=== PATIENT | female | born 1965 | race American Indian/Alaskan Native ===

== ENCOUNTER 2016-12-05 15:58 | Emergency (ER) | payer BC, MEDICARE | END 2016-12-05 16:44 | disposition left against medical advice (07) | LOC: DL.ED 15:58 | DX: Z53.21 Procedure and treatment not carried out due to patient leaving prior to being seen by health care provider (principal) ==

== ENCOUNTER 2017-05-31 10:23 | Emergency (ER) | payer BC, MEDICARE ==
--- NOTE | 2017-05-31 10:41 | EDM.PDOC ---
ED HPI GENERAL MEDICAL PROBLEM - General Chief Complaint: Headache Stated Complaint: CAME FROM ACLR Time Seen by Provider: 05/31/17 10:35 Source of Information: Reports: Patient, Old Records, Provider (Dr. Zepeda), RN , RN Notes Reviewed History Limitations: Reports: No Limitations - History of Present Illness INITIAL COMMENTS - FREE TEXT/NARRATIVE: Sent from clinic by Dr. Zepeda with c/o of fairly sudden onset of a generalized headache one week ago on 05/24/17. Pt was seen in clinic and had a CT Head on 05/29/17 which showed a tiny lacunar infarct in the right frontal hemisphere of unknown chronicity, but was otherwise with no acute findings. Pt discontinued her Hydrocodone that she takes for chronic back pain because she didn't know if she should keep taking it while she had this headache. Pt seen by Dr. Zepeda in clinic today because the headache has continued and worsened. Pt reported subjective fever and chills and random intermittent generalized body aches, but Dr. Zepeda states pt does not have influenza. Pt also reported neck pain, so Dr. Zepeda sent her to the ER for further evaluation. Pt reports to me that when the headache began she and her sister were headed out of town to a for a family member, and it was stressful. They stopped and ate at [facility], and she normally doesn't eat that kind of food. Shortly after eating she became nauseated and vomited and around that time is when the headache started. Since 05/24/17 she reports recurrent nausea, and has vomited a few times. She does not feel the N/V are necessarily related or associated to the headache. She reports a flare up of her chronic low back pain and had the new onset of left sided sciatica radiating to her knee. When she lays down her headache is worse if she lifts the left leg, because it causes tightness in the low back. Pt c/o muscle tension and spasms in the back of the head, neck, and upper back. Denies injury. Onset: Sudden Onset Date: 05/24/17 Duration: Constant, Getting Worse Location: Reports: Head (pain moves around to differnt areas of the head) Quality: Reports: Ache Severity: Severe Improves with: Reports: None Worsens with: Reports: None Bilateral Head Pain Score (Numeric/FACES): 9 - Related Data Allergies Allergy/AdvReac Type Severity Reaction Status Date / Time iopamidol [From Isovue-M] Allergy Severe Difficulty Verified 09/26/14 15:49 Breathing gabapentin Allergy Hallucinati Verified 09/26/14 15:49 ons Penicillins Allergy Cannot Verified 09/26/14 15:49 Remember Home Meds: Home Meds Hydrocodone/Acetaminophen [Hydrocodon-Acetaminophen 5-325] 1 each PO Q6HR PRN [History] Aspirin [Halfprin] 81 mg PO DAILY 05/31/17 [History] Fish Oil/[place]-3 Fatty Acids [Fish Oil 1,000 MG] 1 tab PO DAILY 05/31/17 [ History] atorvaSTATin [Lipitor] 10 mg PO DAILY 05/31/17 [History] Past Medical History Musculoskeletal History: Reports: Back Pain, Chronic Neurological History: Reports: CVA (Lacunar infarct) Endocrine/Metabolic History: Reports: Obesity/BMI 30+ - Past Surgical History Neurological Surgical History: Reports: Lumbar Spine Musculoskeletal Surgical History: Reports: Arthroscopic Knee, Other (See Below) Social & Family History - Family History Family Medical History: Noncontributory - Tobacco Use Smoking Status *Q: Never Smoker Second Hand Smoke Exposure: No - Caffeine Use Caffeine Use: Reports: Coffee, Tea - Alcohol Use Days Per Week of Alcohol Use: 0 - Recreational Drug Use Recreational Drug Use: No - Living Situation & Occupation Living situation: Reports: , with Family Occupation: Employed ED ROS GENERAL - Review of Systems Review Of Systems: ROS reveals no pertinent complaints other than HPI. - Physical Exam Exam: See Below Exam Limited By: No Limitations General Appearance: Alert, WD/WN, No Apparent Distress, Obese Eye Exam: Bilateral Eye: EOMI, Normal Fundi, Normal Inspection (No photophobia) , PERRL Ears: Normal External Exam, Normal Canal, Hearing Grossly Normal, Normal TMs Nose: No Blood, Other (moderately inflammed nasal mucosa with no drainage, no tenderness overlying frontal or maxillary sinuses) Throat/Mouth: Normal Inspection, Normal Lips, Normal Teeth, Normal Gums, Normal Oropharynx, Normal Voice, No Airway Compromise Head Exam: Atraumatic, Normocephalic, Scalp Tenderness (soft tissue tenderness generalized at the occipital region). No: Facial Tenderness, Sinus Tenderness Neck: Other (no nuchal rigidity, full ROM with report of muscle spasm/ tenderness with B/L rotation). No: Lymphadenopathy (L), Lymphadenopathy (R) Respiratory/Chest: No Respiratory Distress, Lungs Clear, Normal Breath Sounds, No Accessory Muscle Use, Chest Non-Tender Cardiovascular: Normal Peripheral Pulses, Regular Rate, Rhythm, No Edema, No Gallop, No JVD, No Murmur, No Rub GI/Abdominal: Normal Bowel Sounds, Soft, Non-Tender, No Distention, No Abnormal Bruit, Other (benign moderately obese abdomen) (Female) Exam: Deferred Rectal (Female) Exam: Deferred Neuro Exam (Abbreviated): Alert, Oriented, CN II-XII Intact, Normal Cognition, Normal Gait, No Motor/Sensory Deficits Back Exam: Decreased Range of Motion (of L-spine, chronic per pt.), Paraspinal Tenderness (lumbar), Other (positive left straight leg raise, which also increases pt headache pain). No: CVA Tenderness (L), CVA Tenderness (R) Extremities: Normal Inspection, Normal Range of Motion, Non-Tender, No Pedal Edema, Normal Capillary Refill Psychiatric: Normal Affect, Normal Mood Skin Exam: Warm, Dry, Intact, Normal Color, No Rash Course - Vital Signs Last Recorded V/S: Last Vital Signs Temp 37.2 C 05/31/17 11:48 Pulse 75 05/31/17 11:48 Resp 16 05/31/17 11:48 BP 122/87 05/31/17 11:48 Pulse Ox 98 05/31/17 11:48 - Orders/Labs/Meds Orders: Active Orders 24 hr Category Date Time Status Peripheral IV Care [RC] . DIRECTED Care 05/31/17 10:55 Active CULTURE BLOOD [BC] Stat Lab 05/31/17 11:09 Received CULTURE BLOOD [] Stat Lab 05/31/17 11:14 Received CULTURE STREP A CONFIRMATION [] Stat Lab 05/31/17 11:46 Results STREP SCRN A RAPID W CULT CONF [] Stat Lab 05/31/17 11:46 Results Sodium Chloride 0.9% [Saline Flush] Med 05/31/17 10:55 Active 10 ml FLUSH ASDIRECTED PRN Blood Culture x2 Reflex Set [OM.PC] Stat Oth 05/31/17 10:54 Ordered Peripheral IV Insertion Adult [OM.PC] Stat Oth 05/31/17 10:54 Ordered Medication Orders Sodium Chloride (Saline Flush) 10 ml FLUSH ASDIRECTED PRN PRN Reason: Keep Vein Open Last Admin: 05/31/17 11:21 Dose: 10 ml Labs: Laboratory Tests 05/31/17 05/31/17 05/31/17 Range/Units 11:14 11:14 11:14 WBC 8.0 (5.0-10.0) 10^3/uL RBC 4.99 (4.2-5.4) 10^6/uL Hgb 14.3 (12.0-16.0) g/dL Hct 43.0 (37.0-47.0) % MCV 86.2 (80-100) fL MCH 28.7 (27.0-34.0) pg MCHC 33.3 (33.0-35.0) g/dL Plt Count 232 (150-450) 10^3/uL Neut % (Auto) 65.4 (42.2-75.2) % Lymph % (Auto) 25.8 (20.5-50.1) % Armstrong % (Auto) 7.2 (2-8) % Eos % (Auto) 1.1 (1.0-3.0) % Baso % (Auto) 0.5 (0.0-1.0) % ESR (0-20) mm/hr Sodium 137 (135-145) mmol/L Potassium 3.8 (3.6-5.0) mmol/L Chloride 105 (101-111) mmol/L Carbon Dioxide 26.0 (21.0-31.0) mmol/L Anion Gap 9.8 BUN 10 (7-18) mg/dL Creatinine 0.7 (0.6-1.3) mg/dL Est Cr Clr Drug Dosing TNP Estimated GFR (MDRD) > 60 BUN/Creatinine Ratio 14.28 Glucose 115 H (74-105) mg/dL Lactic Acid 1.0 (0.5-2.2) mmol/L Calcium 10.1 (8.4-10.2) mg/dl Magnesium 1.8 (1.8-2.5) mg/dL Total Bilirubin 0.8 (0.2-1.0) mg/dL AST 21 (10-42) IU/L ALT 27 (10-60) IU/L Alkaline Phosphatase 42 (42-121) IU/L C-Reactive Protein (0.0-1.3) mg/dL Total Protein 7.5 (6.7-8.2) g/dl Albumin 4.6 (3.2-5.5) g/dl Globulin 2.9 Albumin/Globulin Ratio 1.59 05/31/17 05/31/17 Range/Units 11:14 11:14 WBC (5.0-10.0) 10^3/uL RBC (4.2-5.4) 10^6/uL Hgb (12.0-16.0) g/dL Hct (37.0-47.0) % MCV (80-100) fL MCH (27.0-34.0) pg MCHC (33.0-35.0) g/dL Plt Count (150-450) 10^3/uL Neut % (Auto) (42.2-75.2) % Lymph % (Auto) (20.5-50.1) % Armstrong % (Auto) (2-8) % Eos % (Auto) (1.0-3.0) % Baso % (Auto) (0.0-1.0) % ESR 6 (0-20) mm/hr Sodium (135-145) mmol/L Potassium (3.6-5.0) mmol/L Chloride (101-111) mmol/L Carbon Dioxide (21.0-31.0) mmol/L Anion Gap BUN (7-18) mg/dL Creatinine (0.6-1.3) mg/dL Est Cr Clr Drug Dosing Estimated GFR (MDRD) BUN/Creatinine Ratio Glucose (74-105) mg/dL Lactic Acid (0.5-2.2) mmol/L Calcium (8.4-10.2) mg/dl Magnesium (1.8-2.5) mg/dL Total Bilirubin (0.2-1.0) mg/dL AST (10-42) IU/L ALT (10-60) IU/L Alkaline Phosphatase (42-121) IU/L C-Reactive Protein < 0.5 (0.0-1.3) mg/dL Total Protein (6.7-8.2) g/dl Albumin (3.2-5.5) g/dl Globulin Albumin/Globulin Ratio Clinic lab from today, 05/31/17: Influenza A/B Negative (-) Meds: Medications Generic Name Dose Route Start Last Admin Trade Name Freq PRN Reason Stop Dose Admin Sodium Chloride 10 ml 05/31/17 10:55 05/31/17 11:21 Saline Flush FLUSH 10 ml ASDIRECTED PRN Administration Keep Vein Open Discontinued Medications Generic Name Dose Route Start Last Admin Trade Name Freq PRN Reason Stop Dose Admin Dexamethasone 10 mg 05/31/17 10:57 05/31/17 11:20 Dexamethasone IVPUSH 05/31/17 10:58 10 mg ONETIME ONE Administration Hydromorphone HCl 1 mg 05/31/17 10:59 05/31/17 11:20 Dilaudid IVPUSH 05/31/17 11:00 1 mg ONETIME ONE Administration Lactated Ringer's 1,000 mls @ 999 mls/hr 05/31/17 11:00 05/31/17 11:20 Ringers, Lactated IV 05/31/17 12:00 999 mls/hr .BOLUS ONE Administration Ondansetron HCl 4 mg 05/31/17 10:56 05/31/17 11:20 Zofran IV 05/31/17 10:57 4 mg ONETIME ONE Administration - Radiology Interpretation CT Results Date: 05/29/17 (CT Head report reviewed by me.) - Re-Assessments/Exams Free Text/Narrative Re-Assessment/Exam: 05/31/17 12:15 I discussed the exam findings and lab results with Dr. Zepeda. Given the Hx, exam findings, and lab results, I do not see an indication for LP at this time. Pt has improved with Tx in ER. Pt will be d/c'd home with Rx for medrol dose william and cyclobenzaprine 10mg, and she may restart her hydrocodone. Pt will be followed by Dr. Zepeda for recheck, and instructed to return to ER if worse at any time, or if any new Sx's develop. Departure - Departure Time of Disposition: 12:17 Disposition: Home, Self-Care 01 Condition: Good Clinical Impression: Tension-type headache, Viral syndrome, Acute exacerbation of chronic low back pain, Sciatica of left side - Discharge Information Instructions: Tension Headache, Muscle Cramps and Spasms, [id number], Sciatica, [id number] Forms: ED Department Discharge Additional Instructions: Rx: Medrol Dose william *Take with food. Rx: Cyclobenzaprine 10mg *Do not drive while under the influence of this medication. Rx: Zofran 4mg May use your hydrocodone as previously prescribed by your doctor if needed. Follow up next week with Dr. Zepeda for recheck. Return to ER if worse at any time. - My Orders Last 24 Hours: My Active Orders 05/31/17 10:54 Blood Culture x2 Reflex Set [OM.PC] Stat Peripheral IV Insertion Adult [OM.PC] Stat 05/31/17 10:55 Peripheral IV Care [RC] . DIRECTED Sodium Chloride 0.9% [Saline Flush] 10 ml FLUSH ASDIRECTED PRN 05/31/17 11:09 CULTURE BLOOD [BC] Stat 05/31/17 11:14 CULTURE BLOOD [BC] Stat 05/31/17 11:46 CULTURE STREP A CONFIRMATION [RM] Stat STREP SCRN A RAPID W CULT CONF [RM] Stat - Assessment/Plan Last 24 Hours: My Active Orders 05/31/17 10:54 Blood Culture x2 Reflex Set [OM.PC] Stat Peripheral IV Insertion Adult [OM.PC] Stat 05/31/17 10:55 Peripheral IV Care [RC] . DIRECTED Sodium Chloride 0.9% [Saline Flush] 10 ml FLUSH ASDIRECTED PRN 05/31/17 11:09 CULTURE BLOOD [BC] Stat 05/31/17 11:14 CULTURE BLOOD [BC] Stat 05/31/17 11:46 CULTURE STREP A CONFIRMATION [RM] Stat STREP SCRN A RAPID W CULT CONF [RM] Stat
[2017-05-31] MEDS ORDERED: Sodium Chloride 0.9% 10 ML Syringe FLUSH PRN (10:55)
[2017-05-31] MEDS ORDERED: Ondansetron 4 MG/2 ML SDV IV ONE (10:56)
[2017-05-31] MEDS ORDERED: Dexamethasone 4 MG/ML SDV IVPUSH ONE (10:57)
[2017-05-31] MEDS ORDERED: HYDROmorphone 1 MG/ML Syringe IVPUSH ONE (10:59)
[2017-05-31] MEDS ORDERED: Lactated Ringers 1,000 ML IV ONE (11:00)
[2017-05-31 11:41] LABS: CHLORIDE,CL 105 mmol/L (101-111); SODIUM,NA 137 mmol/L (135-145)
[2017-05-31 11:48] VITALS: BP 122/87
== END 2017-05-31 12:35 | disposition home or self-care (01) ==
LOC: DL.ED 10:23
DX: G44.209 Tension-type headache, unspecified, not intractable (principal); B34.9 Viral infection, unspecified; M54.42 Lumbago with sciatica, left side; G89.29 Other chronic pain; Z79.82 Long term (current) use of aspirin; Z79.899 Other long term (current) drug therapy; Z88.2 Allergy status to sulfonamides; Z88.8 Allergy status to other drugs, medicaments and biological substances
CPT/HCPCS: 36415; 80053; 83605; 83735; 85025; 85651; 86140; 87040; 87081; 87430; 96361; 96374; 96375; 99284; J1100; J1170; J2405; J7050; J7120

== ENCOUNTER 2017-08-12 14:41 | Emergency (ER) | payer BC, MEDICARE ==
[2017-08-12 15:11] VITALS: BP 117/80
== END 2017-08-12 16:48 | disposition left against medical advice (07) ==
LOC: DL.ED 14:41
DX: Z53.21 Procedure and treatment not carried out due to patient leaving prior to being seen by health care provider (principal)

== ENCOUNTER 2019-06-21 14:54 | Emergency (ER) | payer BC, MEDICARE ==
[2019-06-21 15:01] VITALS: BP 110/90; PULSE 94
--- NOTE | 2019-06-21 15:11 | EDM.PDOC ---
Scribed by Maia Carpenter 06/21/19 1511 for Ron Simmons MD ED HPI GENERAL MEDICAL PROBLEM - General Chief Complaint: ENT Problem Stated Complaint: RIGHT EAR SOMETHING IN IT. Time Seen by Provider: 06/21/19 15:03 Source of Information: Reports: Patient, RN, RN Notes Reviewed History Limitations: Reports: No Limitations - History of Present Illness INITIAL COMMENTS - FREE TEXT/NARRATIVE: Patient presents to ER stating she thinks she has something in her right ear,. Onset: Today Duration: Constant Location: Reports: Other (right ear) Severity: Mild Improves with: Reports: None Worsens with: Reports: None Associated Symptoms: Reports: No Other Symptoms - Related Data Allergies Allergy/AdvReac Type Severity Reaction Status Date / Time iopamidol [From Isovue-M] Allergy Severe Difficulty Verified 06/21/19 14:59 Breathing gabapentin Allergy Hallucinati Verified 06/21/19 14:59 ons Penicillins Allergy Cannot Verified 06/21/19 14:59 Remember Home Meds: Home Meds Hydrocodone/Acetaminophen [Hydrocodon-Acetaminophen 5-325] 1 each PO Q6HR PRN [History] Aspirin [Halfprin] 81 mg PO DAILY 05/31/17 [History] Fish Oil/[place]-3 Fatty Acids [Fish Oil 1,000 MG] 1 tab PO DAILY 05/31/17 [ History] atorvaSTATin [Lipitor] 10 mg PO DAILY 05/31/17 [History] Past Medical History - Past Health History Medical/Surgical History: Denies Medical/Surgical History HEENT History: Reports: None Cardiovascular History: Reports: Blood Clots/VTE/DVT Respiratory History: Reports: None Gastrointestinal History: Reports: None Genitourinary History: Reports: Urinary Incontinence, Other (See Below) Other Genitourinary History: urinary urgency and occasional incontinence DRIVE MAN History: Reports: None Musculoskeletal History: Reports: Back Pain, Chronic Neurological History: Reports: CVA Psychiatric History: Reports: None Endocrine/Metabolic History: Reports: Obesity/BMI 30+ Hematologic History: Reports: None Immunologic History: Reports: None Oncologic (Cancer) History: Reports: None Dermatologic History: Reports: None - Infectious Disease History Infectious Disease History: Reports: None - Past Surgical History Head Surgeries/Procedures: Reports: None Neurological Surgical History: Reports: Lumbar Spine Musculoskeletal Surgical History: Reports: Arthroscopic Knee, Other (See Below) Social & Family History - Family History Family Medical History: Noncontributory - Caffeine Use Caffeine Use: Reports: Coffee Caffeine Use Comment: 4 cups - day - Living Situation & Occupation Living situation: Reports: , with Family Occupation: Employed ED ROS ENT - Review of Systems Review Of Systems: Comprehensive ROS is negative, except as noted in HPI. ED EXAM, ENT - Physical Exam Exam: See Below Exam Limited By: No Limitations General Appearance: Alert, WD/WN, No Apparent Distress Ears: Normal External Exam, Hearing Grossly Normal, Normal TMs, Canal Foreign Body (Rt), Other (A single large coarse animal (dog) hair removed from Rt ear canal with alligator forceps, symptom was instantly relieved.) Head: Atraumatic, Normocephalic Respiratory/Chest: No Respiratory Distress Neurological: Alert, No Motor/Sensory Deficits Psychiatric: Normal Mood Skin: Warm, Dry, Intact, Normal Color, No Rash Course - Vital Signs Last Recorded V/S: Last Vital Signs Temp 98.0 F 06/21/19 14:59 Pulse 94 06/21/19 14:59 Resp 16 06/21/19 14:59 BP 110/90 06/21/19 14:59 Pulse Ox 96 06/21/19 14:59 Departure - Departure Time of Disposition: 15:08 Disposition: Home, Self-Care 01 Condition: Good Clinical Impression: Foreign body in right ear, initial encounter - Discharge Information *PRESCRIPTION DRUG MONITORING PROGRAM REVIEWED*: No *COPY OF PRESCRIPTION DRUG MONITORING REPORT IN PATIENT JUNIOR: No Instructions: Ear Foreign Body, [id number] Forms: ED Department Discharge Additional Instructions: Follow up in clinic if any further problems. Sepsis Event Note - Evaluation Sepsis Screening Result: No Definite Risk - Focused Exam Vital Signs: Vital Signs Temp Pulse Resp BP Pulse Ox 06/21/19 14:59 98.0 F 94 16 110/90 96 Date Exam was Performed: 06/21/19 Time Exam was Performed: 15:08 I have read and agree with the documentation that has been completed regarding this visit. By signing this record, I attest that the documentation was completed in my physical presence and is an accurate record of the encounter.
== END 2019-06-21 15:14 | disposition home or self-care (01) ==
LOC: DL.ED 14:54
DX: T16.1XXA Foreign body in right ear, initial encounter (principal); Z86.718 Personal history of other venous thrombosis and embolism; Z86.73 Personal history of transient ischemic attack (TIA), and cerebral infarction without residual deficits; E66.9 Obesity, unspecified; Z68.34 Body mass index [BMI] 34.0-34.9, adult; Z91.041 Radiographic dye allergy status; Z88.0 Allergy status to penicillin; Z88.8 Allergy status to other drugs, medicaments and biological substances; Z79.82 Long term (current) use of aspirin; Z79.899 Other long term (current) drug therapy; X58.XXXA Exposure to other specified factors, initial encounter
CPT/HCPCS: 69200; 99282

== ENCOUNTER 2021-02-05 19:01 | Emergency (ER) | payer BC, MEDICARE ==
[2021-02-05 19:18] VITALS: BP 119/65; PULSE 115
[2021-02-05] MEDS ORDERED: Sodium Chloride 0.9% 10 ML Syringe FLUSH PRN (19:24)
--- NOTE | 2021-02-05 19:24 | EDM.PDOC ---
ED HPI GENERAL MEDICAL PROBLEM - General Chief Complaint: General Stated Complaint: POSITIVE COVID Time Seen by Provider: 02/05/21 19:18 Source of Information: Reports: Patient, RN Notes Reviewed History Limitations: Reports: No Limitations - History of Present Illness INITIAL COMMENTS - FREE TEXT/NARRATIVE: Pt is here for worsening COVID symptoms. She started getting sick about 1 week ago and thought it was just her asthma acting up as she always gets a flare around this time of year. She was seen earlier this week and was diagnosed with COVID. She thought she was getting better, but yesterday started to develop more coughing and shortness of breath. She has been using her inhaler, but has not been using her steroids that she has at home for asthma flares as she wasn't sure if it was the appropriate treatment. She is unable to stop coughing, rest or even eat so she decided to come in for further evaluation. - Related Data Allergies Allergy/AdvReac Type Severity Reaction Status Date / Time iopamidol [From Isovue-M] Allergy Severe Difficulty Verified 02/05/21 19:22 Breathing gabapentin Allergy Hallucinati Verified 02/05/21 19:22 ons Penicillins Allergy Cannot Verified 02/05/21 19:22 Remember Home Meds: Home Meds Hydrocodone/Acetaminophen [Hydrocodon-Acetaminophen 5-325] 1 each PO Q6HR PRN 09/03/15 [History] Aspirin [Halfprin] 81 mg PO DAILY 05/31/17 [History] Fish Oil/[place]-3 Fatty Acids [Fish Oil 1,000 MG] 1 tab PO DAILY 05/31/17 [History] atorvaSTATin [Lipitor] 10 mg PO DAILY 05/31/17 [History] Past Medical History - Past Health History Medical/Surgical History: Denies Medical/Surgical History HEENT History: Reports: None Cardiovascular History: Reports: Blood Clots/VTE/DVT Respiratory History: Reports: None Gastrointestinal History: Reports: None Genitourinary History: Reports: Urinary Incontinence, Other (See Below) Other Genitourinary History: urinary urgency and occasional incontinence GRIEVANCE COORDINATOR History: Reports: None Musculoskeletal History: Reports: Back Pain, Chronic Neurological History: Reports: CVA Psychiatric History: Reports: None Endocrine/Metabolic History: Reports: Obesity/BMI 30+ Hematologic History: Reports: None Immunologic History: Reports: None Oncologic (Cancer) History: Reports: None Dermatologic History: Reports: None - Infectious Disease History Infectious Disease History: Reports: None - Past Surgical History Head Surgeries/Procedures: Reports: None Neurological Surgical History: Reports: Lumbar Spine Musculoskeletal Surgical History: Reports: Arthroscopic Knee, Other (See Below) Social & Family History - Family History Family Medical History: No Pertinent Family History - Tobacco Use Tobacco Use Status *Q: Never Tobacco User - Caffeine Use Caffeine Use: Reports: Coffee Caffeine Use Comment: 4 cups - day - Recreational Drug Use Recreational Drug Use: No - Living Situation & Occupation Living situation: Reports: , with Family Occupation: Employed ED ROS GENERAL - Review of Systems Review Of Systems: Comprehensive ROS is negative, except as noted in HPI. ED EXAM, GENERAL - Physical Exam Exam: See Below Exam Limited By: No Limitations General Appearance: Alert, WD/WN, Mild Distress (from coughing fits) Eye Exam: Bilateral Eye: Normal Inspection Ears: Normal External Exam Nose: Normal Inspection Throat/Mouth: Normal Inspection, Normal Voice, No Airway Compromise Head: Atraumatic, Normocephalic Neck: Supple, Non-Tender Respiratory/Chest: No Respiratory Distress, Lungs Clear, Normal Breath Sounds, No Accessory Muscle Use, Chest Non-Tender, Other (coarse cough) Cardiovascular: Normal Peripheral Pulses, Regular Rate, Rhythm, No Murmur GI/Abdominal: Soft, Non-Tender (Female) Exam: Deferred Rectal (Female) Exam: Deferred Extremities: No Pedal Edema, Normal Capillary Refill Neurological: Alert, Oriented, Normal Cognition, No Motor/Sensory Deficits Psychiatric: Normal Affect, Normal Mood Skin Exam: Warm, Dry, Intact, Normal Color, No Rash Course - Vital Signs Last Recorded V/S: Last Vital Signs Temp 99.6 F 02/05/21 19:17 Pulse 115 H 02/05/21 19:17 Resp 24 H 02/05/21 19:17 BP 119/65 02/05/21 19:17 Pulse Ox 93 L 02/05/21 19:17 - Orders/Labs/Meds Orders: Active Orders 24 hr Category Date Time Status Peripheral IV Care [RC] . DIRECTED Care 02/05/21 19:25 Ordered RT Aerosol Therapy [RC] ASDIRECTED Care 02/05/21 19:28 Ordered Sodium Chloride 0.9% [Saline Flush] Med 02/05/21 19:24 Ordered 10 ml FLUSH ASDIRECTED PRN Peripheral IV Insertion Adult [OM.PC] Stat Oth 02/05/21 19:24 Ordered Medication Orders Sodium Chloride (Sodium Chloride 0.9% 10 Ml Syringe) 10 ml FLUSH ASDIRECTED PRN PRN Reason: Keep Vein Open Last Admin: 02/05/21 19:51 Dose: 10 ml Documented by: Labs: Laboratory Tests 02/05/21 02/05/21 02/05/21 Range/Units 19:42 19:42 19:42 WBC 3.6 L (5.0-10.0) 10^3/uL RBC 4.74 (4.2-5.4) 10^6/uL Hgb 14.0 (12.0-16.0) g/dL Hct 41.6 (37.0-47.0) % MCV 87.8 (80-100) fL MCH 29.5 (27.0-34.0) pg MCHC 33.7 (33.0-35.0) g/dL Plt Count 94 L D (150-450) 10^3/uL Neut % (Auto) 70.8 (42.2-75.2) % Lymph % (Auto) 20.1 L (20.5-50.1) % [place] % (Auto) 8.5 H (2-8) % Eos % (Auto) 0.3 L (1.0-3.0) % Baso % (Auto) 0.3 (0.0-1.0) % PT 10.0 (9.0-12.0) SEC INR 1.0 (0.9-1.2) APTT 25.6 (22.0-34.0) SEC D-Dimer, Quantitative 172 (0-400) ng/mL Sodium 135 L (136-145) mmol/L Potassium 3.2 L (3.5-5.1) mmol/L Chloride 98 (98-107) mmol/L Carbon Dioxide 25 (21-32) mmol/L Anion Gap 15.2 H (7-13) mEq/L BUN 5 L (7-18) mg/dL Creatinine 0.70 (0.55-1.02) mg/dL Est Cr Clr Drug Dosing TNP Estimated GFR (MDRD) > 60 BUN/Creatinine Ratio 7.1 (No establ ref range) Glucose 129 H (70-99) mg/dL Calcium 8.6 (8.5-10.1) mg/dL Total Bilirubin 0.3 (0.2-1.0) mg/dL AST 43 H (15-37) U/L ALT 54 (14-59) U/L Alkaline Phosphatase 48 (46-116) U/L Total Protein 6.7 (6.4-8.2) g/dL Albumin 3.5 (3.4-5.0) g/dL Globulin 3.2 Albumin/Globulin Ratio 1.1 Meds: Medications Generic Name Dose Route Start Last Admin Trade Name Harris PRN Reason Stop Dose Admin Sodium Chloride 10 ml 02/05/21 19:24 02/05/21 19:51 Sodium Chloride 0.9% 10 Ml Syringe FLUSH 10 ml ASDIRECTED PRN Administration Keep Vein Open Discontinued Medications Generic Name Dose Route Start Last Admin Trade Name Harris PRN Reason Stop Dose Admin Albuterol/Ipratropium 3 ml 02/05/21 19:28 02/05/21 19:51 Albuterol/Ipratropium 3.0-0.5 Mg/3 Ml Neb Soln NEB 02/05/21 19:29 3 ml ONETIME ONE Administration Dexamethasone 8 mg 02/05/21 19:25 02/05/21 19:50 Dexamethasone 4 Mg/Ml Sdv IVPUSH 02/05/21 19:26 8 mg ONETIME ONE Administration Sodium Chloride 1,000 mls @ 999 mls/hr 02/05/21 19:25 02/05/21 19:51 Normal Saline IV 02/05/21 20:25 999 mls/hr .BOLUS ONE Administration Azithromycin 500 mg/ Sodium 250 mls @ 250 mls/hr 02/05/21 19:28 02/05/21 19:51 Chloride IV 02/05/21 20:27 250 mls/hr ONETIME ONE Administration Promethazine HCl/Codeine 5 ml 02/05/21 19:26 02/05/21 19:51 Codeine/Promethazine 10-6.25 Mg/5 Ml Syrup 5 Ml Ud Cup PO 02/05/21 19:27 5 ml ONETIME ONE Administration - Re-Assessments/Exams Free Text/Narrative Re-Assessment/Exam: Pt reports she is starting to feel better with the medications. 02/05/21 20:53 Departure - Departure Time of Disposition: 21:33 Disposition: Home, Self-Care 01 Condition: Fair Clinical Impression: COVID-19 - Discharge Information *PRESCRIPTION DRUG MONITORING PROGRAM REVIEWED*: No *COPY OF PRESCRIPTION DRUG MONITORING REPORT IN PATIENT JUNIOR: No Instructions: 10 Things You Can Do to Manage Your COVID-19 Symptoms at Home - [facility] (12/09/2019) Forms: ED Department Discharge Additional Instructions: Dexamethasone daily for 4 additional days Azithromycin daily for 4 additional days Phenergan with codeine three times daily as needed for cough Follow current CDC recommendations for quarantine Sepsis Event Note (ED) - Evaluation Sepsis Screening Result: No Definite Risk - Focused Exam Vital Signs: Vital Signs Temp Pulse Resp BP Pulse Ox 02/05/21 19:17 99.6 F 115 H 24 H 119/65 93 L - My Orders Last 24 Hours: My Active Orders 02/05/21 19:24 Sodium Chloride 0.9% [Saline Flush] 10 ml FLUSH ASDIRECTED PRN Peripheral IV Insertion Adult [OM.PC] Stat 02/05/21 19:25 Peripheral IV Care [RC] . DIRECTED 02/05/21 19:28 RT Aerosol Therapy [RC] ASDIRECTED - Assessment/Plan Last 24 Hours: My Active Orders 02/05/21 19:24 Sodium Chloride 0.9% [Saline Flush] 10 ml FLUSH ASDIRECTED PRN Peripheral IV Insertion Adult [OM.PC] Stat 02/05/21 19:25 Peripheral IV Care [RC] . DIRECTED 02/05/21 19:28 RT Aerosol Therapy [RC] ASDIRECTED
[2021-02-05] MEDS ORDERED: Sodium Chloride 0.9% 1,000 ML IV ONE (19:25)
[2021-02-05] MEDS ORDERED: Dexamethasone 4 MG/ML SDV IVPUSH ONE (19:25)
[2021-02-05] MEDS ORDERED: Codeine/Promethazine 10-6.25 MG/5 ML Syrup 5 ML UD Cup PO ONE (19:26)
[2021-02-05] MEDS ORDERED: Azithromycin 500 MG in Sodium Chloride 0.9% 250 ML IV ONE (19:28)
[2021-02-05] MEDS ORDERED: Albuterol/Ipratropium 3.0-0.5 MG/3 ML Neb Soln NEB ONE (19:28)
[2021-02-05 20:20] LABS: PTT,PARTIAL THROMBOPLSTIN TIME 25.6 SEC (22.0-34.0)
[2021-02-05 20:21] LABS: ANION GAP 15.2 mEq/L (7-13); CHLORIDE,CL 98 mmol/L (98-107); SODIUM,NA 135 mmol/L (136-145)
== END 2021-02-05 22:06 | disposition home or self-care (01) ==
LOC: DL.ED 19:01
DX: U07.1 COVID-19 (principal); E66.9 Obesity, unspecified; Z91.041 Radiographic dye allergy status; Z88.8 Allergy status to other drugs, medicaments and biological substances; Z88.0 Allergy status to penicillin; Z79.82 Long term (current) use of aspirin; Z79.899 Other long term (current) drug therapy
CPT/HCPCS: 36415; 80053; 85025; 85379; 85610; 85730; 96365; 96375; 99285; A9270; J0456; J1100; J7030; J7050; J7620-GY